=== PATIENT | male | born 1995 | race African-American/Black ===

== ENCOUNTER 2022-02-26 12:22 | Emergency (ER) | payer OTHER ==
[~2022-02-26] VITALS: Ht 185.4 cm; Wt 100.0 kg
[2022-02-26 12:34] VITALS: BP 150/102
[2022-02-26] MEDS ORDERED: CEFTRIAXONE SODIUM 500 MG/VIAL IM ONE (13:45)
[2022-02-26] MEDS ORDERED: DEXAMETHASONE 10 MG/ML VIAL IM ONE (13:45)
[2022-02-26] MEDS ORDERED: KETOROLAC 30MG/ML VIAL IM ONE (13:45)
[2022-02-26] MEDS ORDERED: LIDOCAINE HCL 1% 20ML VIAL (Pyxis) INJ INFIL ONE (13:45)
[2022-02-26] MEDS ORDERED: DOXY100C5 MT (13:49)
[2022-02-26] MEDS ORDERED: CEPH500T MT (13:49)
[2022-02-26] MEDS ORDERED: LIDOCAINE HCL 1% 20ML VIAL (Pyxis) INJ INFIL NR (14:16)
[2022-02-26] MEDS ORDERED: LIDOCAINE HCL 1% 10 MG/ML 10ML VIAL IJ NR (14:17)
[2022-03-01 05:07] LABS: NEISSERIA GONORRHOEAE NAA Negative (Negative)
== END 2022-02-26 14:41 | disposition home or self-care (01) ==
LOC: ER 12:22
DX: J03.90 Acute tonsillitis, unspecified (principal)
CPT/HCPCS: 87491; 87591; 96372; 99284; J0696; J1100; J1885; J3490